=== PATIENT | male | born 1935 | race African-American/Black ===

== ENCOUNTER 2018-05-22 14:01 | Inpatient (IN) | payer MEDICARE, BC, MEDICAID ==
[~2018-05-22] VITALS: Ht 167.6 cm; Wt 76.0 kg
[2018-05-22 14:30] VITALS: BP 135/79
--- NOTE | 2018-05-22 14:44 | Emergency Room Report ---
History of Present Illness General Chief Complaint: Altered Level of Consciousness Source: Patient, Family Member, EMS Present Illness HPI Patient is had fluctuating altered mentation today. He was able to speak with hospice care worker earlier but now is somewhat confused. He missed dialysis today. He's also been refusing to eat and take his medications recently EMS got blood sugar of 104. Her graft the patient has a history of spinal stenosis. Is complaining about lower back pain. He will not rate the pain. The patient is scheduled to go into hospice tomorrow. When he had this same episode in April he was admitted for sepsis. Was felt to be due to his line at that time. Status post stroke right side In field he had HR 161 - a fib RVR. Apparently refusing dialysis at this time. Allergies: Coded Allergies: No Known Allergies (Unverified , 05/22/18) Patient History Limited by: medical condition Past Medical History: see triage record, old chart reviewed Past Surgical History: other - Fistula Social History: Denies: smoking Social History Narrative DNR Snf -no dialysis Reviewed Nursing Documentation: PMH: Agreed; PSxH: Agreed Review of Systems All Other Systems: limited Physical Exam Vital Signs Date Time Temp Pulse Resp B/P (MAP) Pulse Ox O2 Delivery O2 Flow Rate FiO2 05/22/18 13:52 98.2 112 18 115/68 98 Room Air Sp02 EP Interpretation: reviewed, normal General Appearance: alert, thin, Chronically Ill Head: normocephalic Eyes: bilateral eye normal inspection, bilateral eye PERRL ENT: moist mucus membranes Neck: supple Respiratory: chest non-tender, lungs clear, normal breath sounds Cardiovascular #1: regular rate, rhythm Cardiovascular #2: 2+ radial (R) Gastrointestinal: normal inspection, normal bowel sounds, non tender, no mass, non-distended Genitourinary: no CVA tenderness Musculoskeletal: back normal, normal range of motion Neurologic: alert, oriented x3, sensory intact, motor weakness - Generalized Psychiatric: depressed affect Skin: normal inspection, warm/dry Medical Decision Making Diagnostic Impression: Primary Impression: Altered level of consciousness Additional Impressions: Paroxysmal A-fib Sepsis Qualified Codes: A41.9 - Sepsis, unspecified organism Elevated troponin ESRD (end stage renal disease) ER Course Patient presents with altered level of consciousness of missing dialysis. Differential includes sepsis, acute myocardial infarction, electrolyte imbalance amongst others. Patient will be evaluated with EKG, chest x-ray and labs. He sometimes produces urine. HR better in ED. EKG with ST. Called for + troponin. Aspirin given. Leukocytosis and end-stage renal disease. Elevated BNP. Discussed level of care with daughter. She states she is refusing dialysis. He is due to go into hospice tomorrow. She discussed the patient with a hospice workers. They requested the patient be admitted for observation and stabilization to the hospital. Based on the leukocytosis the patient is presumed to have occult infection. Chest x-ray is negative. Presumptive urinary tract infection even though the patient has not given us urine. Antibiotics are begun. Patient is somewhat improved. Daughter requested the patient be admitted and stabilized prior to discharge to hospice. Patient admitted to Dr. Ashley. Laboratory Tests Test 05/22/18 15:10 White Blood Count 21.6 K/UL (4.8-10.8) H Red Blood Count 3.21 M/UL (4.70-6.10) L Hemoglobin 9.9 G/DL (14.2-18.0) L Hematocrit 31.4 % (42.0-52.0) L Mean Corpuscular Volume 98 FL (80-99) Mean Corpuscular Hemoglobin 30.8 PG (27.0-31.0) Mean Corpuscular Hemoglobin Concent 31.5 G/DL (32.0-36.0) L Red Cell Distribution Width 14.6 % (11.6-14.8) Platelet Count 290 K/UL (150-450) Mean Platelet Volume 5.9 FL (6.5-10.1) L Neutrophils (%) (Auto) % (45.0-75.0) Lymphocytes (%) (Auto) % (20.0-45.0) Monocytes (%) (Auto) % (1.0-10.0) Eosinophils (%) (Auto) % (0.0-3.0) Basophils (%) (Auto) % (0.0-2.0) Differential Total Cells Counted 100 Neutrophils % (Manual) 88 % (45-75) H Lymphocytes % (Manual) 5 % (20-45) L Monocytes % (Manual) 6 % (1-10) Eosinophils % (Manual) 0 % (0-3) Basophils % (Manual) 0 % (0-2) Band Neutrophils 1 % (0-8) Platelet Estimate Adequate Platelet Morphology Normal Hypochromasia 1+ Anisocytosis 1+ Prothrombin Time 11.6 SEC (9.30-11.50) H Prothrombin Time INR 1.1 (0.9-1.1) PTT 33 SEC (23-33) Sodium Level 141 MMOL/L (136-145) Potassium Level 4.3 MMOL/L (3.5-5.1) Chloride Level 102 MMOL/L (98-107) Carbon Dioxide Level 26 MMOL/L (21-32) Anion Gap 13 mmol/L (5-15) Blood Urea Nitrogen 47 mg/dL (7-18) H Creatinine 8.2 MG/DL (0.55-1.30) H Estimate Glomerular Filtration Rate mL/min (>60) Glucose Level 86 MG/DL (74-106) Lactic Acid Level 1.60 mmol/L (0.4-2.0) Calcium Level 8.9 MG/DL (8.5-10.1) Total Bilirubin 0.6 MG/DL (0.2-1.0) Aspartate Amino Transferase (AST) 20 U/L (15-37) Alanine Aminotransferase (ALT) 11 U/L (12-78) L Alkaline Phosphatase 106 U/L (46-116) Total Creatine Kinase 288 U/L (26-308) Troponin I 0.315 ng/mL (0.000-0.056) Pro-B-Type Natriuretic Peptide > 28056 pg/mL (0-125) H Total Protein 7.0 G/DL (6.4-8.2) Albumin 2.1 G/DL (3.4-5.0) L Globulin 4.9 g/dL Albumin/Globulin Ratio 0.4 (1.0-2.7) L EKG Diagnostic Results Rate: tachycardiac Rhythm: other ST Segments: no acute changes Rhythm Strip Diag. Results EP Interpretation: yes Rhythm: no PVC's, no ectopy, other - ST Chest X-Ray Diagnostic Results Chest X-Ray Diagnostic Results : Chest X-Ray Ordered: Yes # of Views/Limited/Complete: 1 View Indication: Other EP Interpretation: Yes Interpretation: no consolidation, no pneumothorax Impression: No acute disease Electronically Signed by: Electronically signed by Maicol Guardado MD Last Vital Signs Date Time Temp Pulse Resp B/P (MAP) Pulse Ox O2 Delivery O2 Flow Rate FiO2 05/22/18 13:52 98.2 112 18 115/68 98 Room Air Status: improved Disposition: ADMITTED INPATIENT Condition: Serious Maicol Guardado MD May 22, 2018 14:44
[2018-05-22 15:36] LABS: INR 1.1 (0.9-1.1)
[2018-05-22 15:37] LABS: HEMATOCRIT 31.4 % (42.0-52.0); HEMOGLOBIN 9.9 G/DL (14.2-18.0); MEAN CORPUSCULAR VOLUME 98 FL (80-99); PLATELET COUNT 290 K/UL (150-450); RED BLOOD COUNT 3.21 M/UL (4.70-6.10); RED CELL DISTRIBUTION WIDTH 14.6 % (11.6-14.8); WHITE BLOOD COUNT 21.6 K/UL (4.8-10.8)
[2018-05-22 15:38] LABS: ANION GAP 13 mmol/L (5-15); BLOOD UREA NITROGEN 47 mg/dL (7-18); CALCIUM 8.9 MG/DL (8.5-10.1); CARBON DIOXIDE 26 MMOL/L (21-32); CHLORIDE 102 MMOL/L (98-107); CREATININE 8.2 MG/DL (0.55-1.30); POTASSIUM 4.3 MMOL/L (3.5-5.1); SODIUM 141 MMOL/L (136-145)
[2018-05-22 15:48] LABS: ALANINE AMINOTRANSFERASE 11 U/L (12-78); ALBUMIN 2.1 G/DL (3.4-5.0); ALBUMIN/GLOBULIN RATIO 0.4 (1.0-2.7); ALKALINE PHOSPHATASE 106 U/L (46-116); ASPARTATE AMINO TRANSFERASE 20 U/L (15-37); BILIRUBIN,TOTAL 0.6 MG/DL (0.2-1.0); CREATINE KINASE 288 U/L (26-308)
--- NOTE | 2018-05-22 15:48 | Diagnostic Imaging Report ---
Indication: Dyspnea Comparison: None A single view chest radiograph was obtained. Findings: Cardiomediastinal appearance is within normal limits for age. The lungs are clear. Pulmonary vascularity is appropriate. The diaphragmatic contour is smooth and costophrenic angles are sharp. No pleural effusions are identified. The bones are unremarkable. Impression: No acute findings
[2018-05-22] MEDS ORDERED: Cefepime HCl 1 GM in D5W 55 ML IVPB ONE (16:00)
[2018-05-22 18:16] VITALS: BP 118/56
[2018-05-22 20:00] VITALS: BP 118/63
[2018-05-22] MEDS ORDERED: DiphenhydrAMINE 50mg/ml Inj IVP PRN (22:45)
[2018-05-22] MEDS ORDERED: Morphine Sulfate 2mg/ml Inj(IV/IM USE ONLY) IVP PRN (22:45)
[2018-05-22] MEDS ORDERED: HYDROcodone/Acetamin 10/325 tab ORAL PRN (22:45)
[2018-05-22] MEDS ORDERED: Norco 5mg/325mg tab ORAL PRN (22:45)
[2018-05-22] MEDS ORDERED: FINASTERIDE5 MG ORAL (23:24)
[2018-05-22] MEDS ORDERED: FAMOTIDINE20 MG ORAL (23:24)
[2018-05-22] MEDS ORDERED: NEPHROVITE1 TAB ORAL (23:24)
[2018-05-22] MEDS ORDERED: DONEPEZIL HCL10 MG ORAL (23:24)
[2018-05-22] MEDS ORDERED: ULORIC40 MG ORAL (23:24)
[2018-05-22] MEDS ORDERED: RENVELA0.8 GM ORAL (23:24)
[2018-05-22] MEDS ORDERED: DOCUSATE SODIU100 MG ORAL (23:24)
[2018-05-22] MEDS ORDERED: GABAPENTIN100 MG ORAL (23:24)
[2018-05-22] MEDS ORDERED: MELATONIN 3 MG1 EAC1 PO (23:24)
[2018-05-22] MEDS ORDERED: MIRALAX17 G2 ORAL (23:40)
[2018-05-22] MEDS ORDERED: KEPPRA750 MG ORAL (23:40)
[2018-05-22] MEDS ORDERED: KEPPRA500 M4 ORAL (23:40)
[2018-05-22] MEDS ORDERED: ACETAMINOPHEN120 MG ORAL (23:40)
[2018-05-22] MEDS ORDERED: DULCOLAX10 MG RC (23:40)
[2018-05-22] MEDS ORDERED: TRILEPTAL150 M3 PO (23:40)
[2018-05-22] MEDS ORDERED: Miralax 17gm pkt ORAL PRN (23:45)
[2018-05-23] VITALS: BP 124/67
[2018-05-23] MEDS: Nephrovite tab (Rena-Vite) ORAL SCH ×2 (01:15→21:48)
[2018-05-23] MEDS: OXcarbazepine 150mg tab ORAL SCH ×4 (01:16→21:55)
[2018-05-23] MEDS: Zosyn 3.375gm in NS 110ml IVPB SCH ×2 (01:22→12:00)
[2018-05-23 04:00] VITALS: BP 126/74
[2018-05-23 08:00] VITALS: BP 122/77
[2018-05-23] MEDS: Calcitriol 0.25mcg Cap ORAL SCH (09:00)
[2018-05-23] MEDS: Vitamin B Complex Tab ORAL SCH (09:00)
[2018-05-23] MEDS: Docusate 100mg cap ORAL SCH ×2 (09:00→17:28)
[2018-05-23] MEDS: Heparin 5000 units/ml inj SUBQ SCH ×2 (10:29→21:51)
--- NOTE | 2018-05-23 10:29 | History & Physical ---
History and Physical History & Physicial DICT # [id number] Trae Ashley MD May 23, 2018 10:29
[2018-05-23] MEDS: Renvela 800mg Pkt ORAL SCH ×3 (10:30→17:29)
[2018-05-23 12:00] VITALS: BP 119/75
--- NOTE | 2018-05-23 14:25 | Consultation ---
History of Present Illness General Date patient seen: May 23, 2018 Chief Complaint: Altered Level of Consciousness Present Illness HPI 83 y/o M with hx of ESRD on HD via AVF, spinal stenosis,.CVA presented to ED on 05/22 with AMS, poor PO intake, lower back pain. In the filed pt with Afib with RVR to 161. He missed HD sesion day of admission. Patient is schedule to go to hospice tomorrow. He was found to have leukocytosis in the 20s and ID called to assist on management. Per daughter, agrees with antibiotic treatment if needed. Denies cough, KURTZ, n/v/d, diarrhea, abd pain Allergies: Coded Allergies: No Known Allergies (Unverified , 05/22/18) Medication History Scheduled Docusate Sodium* (Docusate Sodium*), 100 MG ORAL TWICE A DAY, (Reported) Donepezil Hcl* (Donepezil Hcl*), 15 MG ORAL DAILY, (Reported) Famotidine (Famotidine), 20 MG ORAL BEDTIME, (Reported) Febuxostat (Uloric), 40 MG ORAL DAILY, (Reported) Finasteride (Finasteride), 5 MG ORAL BEDTIME, (Reported) Gabapentin* (Gabapentin*), 100 MG ORAL BEDTIME, (Reported) Levetiracetam (Keppra), 750 MG ORAL DAILY, (Reported) Levetiracetam (Keppra), 500 MG ORAL 3XW, (Reported) Melatonin/Pyridoxine HCl (B6) (Melatonin 3 mg Tablet), 1 EACH PO BEDTIME, ( Reported) Oxcarbazepine (Trileptal), 150 MG PO EVERY 12 HOURS, (Reported) Polyethylene Glycol 3350* (Miralax*), 17 GM ORAL EVERY 8 HOURS, (Reported) Sevelamer Carbonate* (Renvela*), 800 MG ORAL THREE TIMES A DAY, (Reported) Vitamin B Cmplx/Vit C/Folic AC (Nephro-Deon Tablet), 1 TAB ORAL BEDTIME, ( Reported) Scheduled PRN Acetaminophen* (Tylenol*), 650 MG ORAL Q4H PRN for Mild Pain/Temp > 100.5, ( Reported) Miscellaneous Medications Bisacodyl (Dulcolax), 10 MG RC, (Reported) Patient History Healthcare decision maker Resuscitation status Do Not Resuscitate Advanced Directive on File Patient History Narrative Pmhx: as above Shx: Denies: smoking Fhx: non contributory Physical Exam Physical Exam Narrative General Appearance: alert, thin, Chronically Ill HEENT: normocephalic, bilateral eye normal inspection, bilateral eye PERRL ENT: moist mucus membranes Neck: supple Respiratory: chest non-tender, lungs clear, normal breath sounds Cardiovascular regular rate, rhythm Gastrointestinal: normal inspection, normal bowel sounds, non tender, no mass, non-distended Genitourinary: no CVA tenderness Musculoskeletal: back normal, normal range of motion Neurologic: alert, oriented x3, sensory intact, motor weakness - Generalized Psychiatric: depressed affect Skin: normal inspection, warm/dry Last 24 Hour Vital Signs Date Time Temp Pulse Resp B/P (MAP) Pulse Ox O2 Delivery O2 Flow Rate FiO2 05/23/18 12:00 98.0 76 18 119/75 (90) 95 05/23/18 09:00 Room Air 05/23/18 08:00 98.1 79 18 122/77 (92) 95 05/23/18 04:00 98.1 81 17 126/74 (91) 95 05/23/18 01:06 Room Air 05/23/18 00:00 98.2 71 17 124/67 (86) 97 05/22/18 20:00 98.8 87 17 118/56 98 Room Air 05/22/18 20:00 98.7 83 17 118/63 (81) 96 05/22/18 18:16 98.8 87 17 118/56 98 Room Air 05/22/18 14:30 99.1 100 15 135/79 98 Room Air Intake and Output 05/22/18 05/23/18 19:00 07:00 Intake Total 110.0 ml Balance 110.0 ml Intake IV Total 110.0 ml # Voids 1 Laboratory Tests Test 05/22/18 15:10 White Blood Count 21.6 K/UL (4.8-10.8) H Red Blood Count 3.21 M/UL (4.70-6.10) L Hemoglobin 9.9 G/DL (14.2-18.0) L Hematocrit 31.4 % (42.0-52.0) L Mean Corpuscular Volume 98 FL (80-99) Mean Corpuscular Hemoglobin 30.8 PG (27.0-31.0) Mean Corpuscular Hemoglobin Concent 31.5 G/DL (32.0-36.0) L Red Cell Distribution Width 14.6 % (11.6-14.8) Platelet Count 290 K/UL (150-450) Mean Platelet Volume 5.9 FL (6.5-10.1) L Neutrophils (%) (Auto) % (45.0-75.0) Lymphocytes (%) (Auto) % (20.0-45.0) Monocytes (%) (Auto) % (1.0-10.0) Eosinophils (%) (Auto) % (0.0-3.0) Basophils (%) (Auto) % (0.0-2.0) Differential Total Cells Counted 100 Neutrophils % (Manual) 88 % (45-75) H Lymphocytes % (Manual) 5 % (20-45) L Monocytes % (Manual) 6 % (1-10) Eosinophils % (Manual) 0 % (0-3) Basophils % (Manual) 0 % (0-2) Band Neutrophils 1 % (0-8) Platelet Estimate Adequate Platelet Morphology Normal Hypochromasia 1+ Anisocytosis 1+ Prothrombin Time 11.6 SEC (9.30-11.50) H Prothromb Time International Ratio 1.1 (0.9-1.1) Activated Partial Thromboplast Time 33 SEC (23-33) Sodium Level 141 MMOL/L (136-145) Potassium Level 4.3 MMOL/L (3.5-5.1) Chloride Level 102 MMOL/L (98-107) Carbon Dioxide Level 26 MMOL/L (21-32) Anion Gap 13 mmol/L (5-15) Blood Urea Nitrogen 47 mg/dL (7-18) H Creatinine 8.2 MG/DL (0.55-1.30) H Estimat Glomerular Filtration Rate mL/min (>60) Glucose Level 86 MG/DL (74-106) Lactic Acid Level 1.60 mmol/L (0.4-2.0) Calcium Level 8.9 MG/DL (8.5-10.1) Total Bilirubin 0.6 MG/DL (0.2-1.0) Aspartate Amino Transf (AST/SGOT) 20 U/L (15-37) Alanine Aminotransferase (ALT/SGPT) 11 U/L (12-78) L Alkaline Phosphatase 106 U/L (46-116) Total Creatine Kinase 288 U/L (26-308) Troponin I 0.315 ng/mL (0.000-0.056) Pro-B-Type Natriuretic Peptide > 18622 pg/mL (0-125) H Total Protein 7.0 G/DL (6.4-8.2) Albumin 2.1 G/DL (3.4-5.0) L Globulin 4.9 g/dL Albumin/Globulin Ratio 0.4 (1.0-2.7) L Microbiology Date/Time Source Procedure Growth Status 05/22/18 21:00 Wound Gram Stain - Final Resulted 05/22/18 21:00 Wound Wound Culture Pending Resulted Height (Feet): 5 Height (Inches): 6.00 Weight (Pounds): 163 Medications Current Medications Medications (Trade) Dose Ordered Sig/Kiera Route PRN Reason Start Time Stop Time Status Last Admin Dose Admin Acetaminophen (Tylenol) 650 mg Q4H PRN ORAL Mild Pain/Temp > 100.5 05/23/18 00:30 06/22/18 00:29 Acetaminophen/ Hydrocodone Bitart ([place] 10/325) 1 tab Q4H PRN ORAL Moderate Pain (Pain Scale 4-6) 05/22/18 22:45 05/29/18 22:44 Acetaminophen/ Hydrocodone Bitart ([place] 5/325) 1 tab Q4H PRN ORAL Mild Pain (Pain Scale 1-3) 05/22/18 22:45 05/29/18 22:44 Bisacodyl (Dulcolax) 10 mg DAILYPRN PRN RECTAL Constipation 05/23/18 00:30 06/22/18 00:29 Calcitriol (Rocatrol) 0.25 mcg DAILY ORAL 05/23/18 09:00 06/22/18 08:59 Diphenhydramine HCl (Benadryl) 25 mg Q6H PRN IVP Itching 05/22/18 22:45 06/21/18 22:44 Docusate Sodium (Colace) 100 mg TWICE A DAY ORAL 05/23/18 09:00 06/22/18 08:59 Donepezil HCl (Aricept) 15 mg BEDTIME ORAL 05/23/18 21:00 06/22/18 20:59 Famotidine (Pepcid) 20 mg BEDTIME ORAL 05/23/18 00:15 06/22/18 00:14 05/23/18 01:15 Finasteride (Proscar) 5 mg BEDTIME ORAL 05/23/18 00:15 06/22/18 00:14 05/23/18 01:15 Gabapentin (Neurontin) 100 mg BEDTIME ORAL 05/23/18 00:15 06/22/18 00:14 05/23/18 01:15 Heparin Sodium (Porcine) (Heparin 5000 units/ml) 5,000 units EVERY 12 HOURS SUBQ 05/23/18 09:00 06/22/18 08:59 05/23/18 10:29 Levetiracetam (Keppra) 500 mg 3XW ORAL 05/24/18 09:00 06/23/18 08:59 Levetiracetam (Keppra) 750 mg DAILY ORAL 05/23/18 09:00 06/22/18 08:59 05/23/18 10:30 Morphine Sulfate (Morphine Sulfate) 1 mg Q4H PRN IVP For Pain 05/22/18 22:45 05/29/18 22:44 Non-Formulary Medication (Non-Formulary Med) 1 ea DAILY ORAL 05/23/18 09:00 06/22/18 08:59 UNV Ondansetron HCl (Zofran) 4 mg Q6H PRN IVP Nausea & Vomiting 05/22/18 22:45 06/21/18 22:44 Oxcarbazepine (Trileptal) 75 mg BEDTIME ORAL 05/23/18 21:00 06/22/18 20:59 Oxcarbazepine (Trileptal) 150 mg EVERY 12 HOURS ORAL 05/23/18 00:15 06/22/18 00:14 05/23/18 01:16 Piperacillin Sod/ Tazobactam Sod 3.375 gm/Sodium Chloride 110 ml @ 27.5 mls/hr Q12H IVPB 05/23/18 00:00 05/30/18 00:00 05/23/18 12:00 Polyethylene Glycol (Miralax) 17 gm Q8H PRN ORAL Constipation 05/22/18 23:45 06/21/18 23:44 Sevelamer Carbonate (Renvela) 800 mg THREE TIMES A DAY ORAL 05/23/18 09:00 06/22/18 08:59 05/23/18 12:55 Vitamin B Complex (Vitamin B Complex) 1 tab DAILY ORAL 05/23/18 09:00 06/22/18 08:59 Vitamin B Complex/ Vit C/Folic Acid (Nephrovite) 1 tab BEDTIME ORAL 05/23/18 00:15 06/22/18 00:14 05/23/18 01:15 Assessment/Plan Assessment/Plan Abx: Zosyn 05/23- Cefepime x1 05/22 Assessment: Acute encephalopathy- ? uremic encephalopathy ( missing HD session) Afebrile Leukocytosis- no obvious infectious source at present- ?reactive- patient not septic, no localizing symptoms -r.o bacteremia -u/a not able to be obtain -CXR: no acute disease ESRD on HD via AVF spinal stenosis CVA Plan: -On empiric ZOsyn #1 -patient is going to hospice, currently he is not septic and no obvious infections process at present. Given hospice and goals of care, recommend discharging him off antibiotics as these will no provide comfort and may produce complications. -f/u cx -Monitor CBC/CMP, temperatures -aspiration precautions -Hospice/comfort care Thank you for this consultation. Will continue to follow along with you. Discussed with RN and Kim Hernandez M.D. May 23, 2018 14:25
--- NOTE | 2018-05-23 15:30 | Consultation ---
Consult Note Consult Note asked to eval for renal failure and possible needed dialysis management ER NOTE: Patient is had fluctuating altered mentation . He was able to speak with hospice care worker earlier but now is somewhat confused. He missed dialysis today. He's also been refusing to eat and take his medications recently EMS got blood sugar of 104. Her graft the patient has a history of spinal stenosis. Is complaining about lower back pain. He will not rate the pain. The patient is scheduled to go into hospice tomorrow. When he had this same episode in April he was admitted for sepsis. Was felt to be due to his line at that time. Status post stroke right side In field he had HR 161 - a fib RVR. Apparently refusing dialysis at this time. No Known Allergies (Unverified , 05/22/18) Limited by: medical condition Past Medical History: see triage record, old chart reviewed Past Surgical History: other - Fistula Social History: Denies: smoking Social History Narrative DNR Snf -no dialysis Reviewed Nursing Documentation: PMH: Agreed; PSxH: Agreed patient examined- data reviewed Assessment/Plan Acute encephalopathy- ? uremic encephalopathy ( missing HD session) ESRD Spinal Stenosis Leukocytosis , no fever CVA plan: will discuss with PMD and clarify if : HD and or Hospice route is to be taken ! Travis Peña MD May 23, 2018 15:30
--- NOTE | 2018-05-23 15:31 | Cardiology Report ---
APPROVED REPORT EKG Measurement Heart [id number] Sinus tachycardia Abnormal ECG
[2018-05-23 16:00] VITALS: BP 143/79
[2018-05-23 20:00] VITALS: BP 133/66
[2018-05-23] MEDS ORDERED: Miralax 17gm pkt ORAL PRN (21:00)
[2018-05-23] MEDS: Donepezil 5mg Tab ORAL SCH (21:48)
[2018-05-23] MEDS: Zosyn 2.25 gm in D5W 55ml IV SCH (21:56)
--- NOTE | 2018-05-23 23:30 | History and Physical Report ---
DATE OF ADMISSION: 05/22/2018 CHIEF COMPLAINT: Altered mental status. HISTORY OF PRESENT ILLNESS: The patient is a very unfortunate 83-year-old male with a history of end-stage renal disease, on dialysis, hypertension, hyperlipidemia, renal cell carcinoma, status post cryoablation, seizure disorder, and dementia, admitted through the emergency department with altered mental status. The patient was scheduled to start hospice services today and discontinue dialysis. However, when he got to the dialysis center, he was altered, so was sent into the ER. The ER physician had a discussion with the patient's daughter and they elected to admit the patient to the hospital. The daughter also consulted with the hospice company prior to doing this. The patient has been afebrile with stable vital signs since he has been here. He had an episode of atrial fibrillation with RVR in the field, but he has been rate controlled here, saturating well on room air. His workup was significant for a leukocytosis, elevated troponin, and BNP. Chest x-ray done in the ER showed no acute findings. The patient himself is demented and cannot provide any history. PAST MEDICAL HISTORY: 1. End-stage renal disease, on dialysis. 2. Hypertension. 3. Hyperlipidemia. 4. Renal cell carcinoma, status post cryoablation. 5. Seizure disorder. 6. Gout. 7. Dementia. ALLERGIES: No known drug allergies. MEDICATIONS: Prior to admission, medications reviewed. Current medications reviewed. SOCIAL HISTORY: intermediate resident. No known tobacco, alcohol, or illicit drug use. FAMILY HISTORY: Noncontributory. REVIEW OF SYSTEMS: Unobtainable. PHYSICAL EXAMINATION: VITAL SIGNS: Temperature 98.1, pulse 81, blood pressure 126/74, respiratory rate 17, and saturating 95% on room air. GENERAL: He is an elderly demented male, in no acute distress HEENT: Normocephalic and atraumatic. Oropharynx clear. NECK: Supple without lymphadenopathy. CHEST: Clear with bibasilar rales. HEART: Regular rate and rhythm. ABDOMEN: Soft, nontender, and nondistended. EXTREMITIES: No cyanosis, clubbing or edema. LABORATORY AND DIAGNOSTIC DATA: Sodium , chloride 102, bicarbonate 26, BUN creatinine 8.2, glucose 86, lactic acid , calcium 8.9. Total bilirubin 0.6. AST 20, ALT 11, and alkaline phosphatase 106. CK 288, troponin 0.315. BNP 35,000. Total protein 7, albumin 2.1, globulin 4.9. INR 1.9. Chest x-ray, no acute findings. ASSESSMENT: The patient is an 83-year-old male, history of end-stage renal disease, on dialysis, hypertension, hyperlipidemia, renal cell carcinoma, status post cryoablation, seizure disorder, dementia, presenting with altered mental status likely secondary to toxic encephalopathy from an underlying infectious process, given leukocytosis, has no evidence of pneumonia. Urine was not obtainable. The patient is being treated. The patient received cefepime in the ER and we started Zosyn upon arrival to the floor. I have discussed the case with the patient's aerospace quality engineer, and his daughter, given plan to transition to home hospice. We will continue antibiotics. I will consult ID to assist me in transitioning to oral antibiotic regimen with the plan of discharging the patient home to home hospice. The patient is DNR/DNI with no plan for escalation of care and we will plan for dialysis while in the hospital. PROBLEM LIST: 1. Sepsis. 2. Leukocytosis. 3. Altered mental status secondary to above. 4. End-stage renal disease, on dialysis, with plan to discontinue dialysis. 5. Renal cell carcinoma, status post cryoablation. 6. Seizure disorder. 7. Vascular dementia. 8. Hypertension. 9. Hyperlipidemia. 10. Gout. TREATMENT PLAN: 1. Continue IV antibiotics for now. We will consult ID to assist in transition to an oral regimen. 2. No plan for further dialysis. 3. Discontinue daily laboratories. 4. Continue home medications. 5. Hospice has already been set up by the patient's daughter. 6. Case management consult to assist in transitioning to home hospice. 7. Once plan is in place, we will discharge the patient home with home hospice with no plan for further dialysis. 8. Renal evaluation has been requested by Dr. Peña as well. 9. Case discussed with , the patient's aerospace quality engineer and Dr. Pappas , the patient's PMD. Trae Ashley M.D. DR: SHEKHAR JOB#: [id number] CC:
[2018-05-24] VITALS: BP 124/67
[2018-05-24 04:00] VITALS: BP 116/67
[2018-05-24] MEDS: Zosyn 2.25 gm in D5W 55ml IV SCH ×3 (05:18→21:03)
[2018-05-24 07:08] LABS: HEMATOCRIT 27.8 % (42.0-52.0); MEAN CORPUSCULAR VOLUME 97 FL (80-99); PLATELET COUNT 309 K/UL (150-450); RED BLOOD COUNT 2.85 M/UL (4.70-6.10); RED CELL DISTRIBUTION WIDTH 14.7 % (11.6-14.8)
[2018-05-24 07:40] LABS: AMMONIA 18 umol/L (11-32)
[2018-05-24 07:42] LABS: ALANINE AMINOTRANSFERASE 11 U/L (12-78); ALBUMIN 1.7 G/DL (3.4-5.0); ALBUMIN/GLOBULIN RATIO 0.4 (1.0-2.7); ALKALINE PHOSPHATASE 92 U/L (46-116); ANION GAP 11 mmol/L (5-15); ASPARTATE AMINO TRANSFERASE 25 U/L (15-37); BILIRUBIN,TOTAL 0.5 MG/DL (0.2-1.0); BLOOD UREA NITROGEN 63 mg/dL (7-18); CALCIUM 8.2 MG/DL (8.5-10.1); CARBON DIOXIDE 27 MMOL/L (21-32); CHLORIDE 103 MMOL/L (98-107); CHOLESTEROL 118 MG/DL (< 200); CREATININE 9.3 MG/DL (0.55-1.30); HDL CHOLESTEROL 26 MG/DL (40-60); PHOSPHORUS 3.3 MG/DL (2.5-4.9); POTASSIUM 4.3 MMOL/L (3.5-5.1); SODIUM 141 MMOL/L (136-145); TRIGLYCERIDES 102 MG/DL (30-150)
[2018-05-24 08:00] VITALS: BP 140/72
[2018-05-24 08:28] LABS: % IRON SATURATION 45 % (15-50); IRON 17 ug/dL (50-175); TOTAL IRON BINDING CAPACITY 38 ug/dL (250-450)
[2018-05-24] MEDS: Calcitriol 0.25mcg Cap ORAL SCH (08:42)
[2018-05-24] MEDS: OXcarbazepine 150mg tab ORAL SCH ×3 (08:42→20:56)
[2018-05-24] MEDS: Renvela 800mg Pkt ORAL SCH ×3 (08:42→18:18)
[2018-05-24] MEDS: Docusate 100mg cap ORAL SCH ×2 (08:44→18:00)
[2018-05-24] MEDS: Heparin 5000 units/ml inj SUBQ SCH ×2 (08:44→20:57)
[2018-05-24] MEDS: Vitamin B Complex Tab ORAL SCH (08:44)
[2018-05-24 09:03] LABS: FERRITIN 1462 NG/ML (8-388)
[2018-05-24 12:00] VITALS: BP 139/73
--- NOTE | 2018-05-24 15:11 | Nephrology Progress Note ---
Assessment/Plan Problem List: (1) Sepsis (2) ESRD (end stage renal disease) (3) Altered level of consciousness Assessment Acute encephalopathy- ? uremic encephalopathy ( missing HD session) ESRD Spinal Stenosis Leukocytosis , no fever CVA Plan HD in am- Per ID Subjective ROS Limited/Unobtainable: No Constitutional: Reports: malaise, weakness Objective Objective Last 24 Hour Vital Signs Date Time Temp Pulse Resp B/P (MAP) Pulse Ox O2 Delivery O2 Flow Rate FiO2 05/24/18 12:00 97.0 88 18 139/73 (95) 98 05/24/18 09:00 Room Air 05/24/18 08:00 98.9 87 18 140/72 (94) 98 05/24/18 04:00 98.2 85 16 116/67 (83) 98 05/24/18 00:00 98.2 95 16 124/67 (86) 100 05/23/18 21:00 Room Air 05/23/18 20:00 98.6 91 17 133/66 (88) 98 05/23/18 16:00 98.4 92 18 143/79 (100) 100 Intake and Output 05/23/18 05/24/18 19:00 07:00 Intake Total 970.0 ml 100 ml Balance 970.0 ml 100 ml Intake Oral 860 ml 100 ml IV Total 110.0 ml # Voids 8 # Bowel Movements 1 Laboratory Tests 05/23/18 16:30: C-Reactive Protein, Quantitative 25.6H 05/24/18 06:35: White Blood Count 23.0*H, Red Blood Count 2.85L, Hemoglobin 9.0L, Hematocrit 27.8L, Mean Corpuscular Volume 97, Mean Corpuscular Hemoglobin 31.4H, Mean Corpuscular Hemoglobin Concent 32.3, Red Cell Distribution Width 14.7, Platelet Count 309, Mean Platelet Volume 5.4L, Neutrophils (%) (Auto) , Lymphocytes (%) ( Auto) , Monocytes (%) (Auto) , Eosinophils (%) (Auto) , Basophils (%) (Auto) , Differential Total Cells Counted 100, Neutrophils % (Manual) 91H, Lymphocytes % (Manual) 1L, Monocytes % (Manual) 4, Eosinophils % (Manual) 0, Basophils % ( Manual) 0, Band Neutrophils 4, Platelet Estimate Adequate, Platelet Morphology Normal, Anisocytosis 1+, Sodium Level 141, Potassium Level 4.3, Chloride Level 103, Carbon Dioxide Level 27, Anion Gap 11, Blood Urea Nitrogen 63H, Creatinine 9.3H, Estimat Glomerular Filtration Rate , Glucose Level 99, Uric Acid 2.3L, Calcium Level 8.2L, Phosphorus Level 3.3, Magnesium Level 2.0, Iron Level 17L, Total Iron Binding Capacity 38L, Percent Iron Saturation 45, Unsaturated Iron Binding 21L, Ferritin 1462H, Total Bilirubin 0.5, Aspartate Amino Transf (AST/ SGOT) 25, Alanine Aminotransferase (ALT/SGPT) 11L, Alkaline Phosphatase 92, Ammonia 18, Pro-B-Type Natriuretic Peptide > 49203V, Total Protein 6.1L, Albumin 1.7L, Globulin 4.4, Albumin/Globulin Ratio 0.4L, Triglycerides Level 102 , Cholesterol Level 118, LDL Cholesterol 56, HDL Cholesterol 26L, Cholesterol/ HDL Ratio 4.5H, Vitamin B12 Level > 2000H, Folate 23.1, Thyroid Stimulating Hormone (TSH) 0.598 Height (Feet): 5 Height (Inches): 6.00 Weight (Pounds): 168 General Appearance: no apparent distress Cardiovascular: normal rate Respiratory/Chest: decreased breath sounds Abdomen: soft Travis Peña MD May 24, 2018 15:11
[2018-05-24 16:00] VITALS: BP 109/58
--- NOTE | 2018-05-24 17:15 | Infectious Diseases Prog Note ---
Assessment/Plan Assessment/Plan Abx: Zosyn 05/23- Cefepime x1 05/22 Assessment: Acute encephalopathy- ? uremic encephalopathy ( missing HD session) Afebrile Leukocytosis, increased- no obvious infectious source at present- ?reactive- patient not septic, no localizing symptoms -r.o bacteremia -u/a not able to be obtain -CXR: no acute disease ESRD on HD via AVF spinal stenosis CVA Plan: -On empiric ZOsyn #2 -patient is going to hospice, currently he is not septic and no obvious infections process at present. Given hospice and goals of care, recommend discharging him off antibiotics as these will no provide comfort and may produce complications. -f/u cx -Monitor CBC/CMP, temperatures -aspiration precautions -Hospice/comfort care Thank you for this consultation. Will continue to follow along with you. Discussed with RN and Dr Ashley Subjective Allergies: Coded Allergies: No Known Allergies (Unverified , 05/22/18) Subjective afebrile wbc increased to 23 patient now agreeable for HD x1 while on hospital and then hospice Objective Vital Signs Last 24 Hour Vital Signs Date Time Temp Pulse Resp B/P (MAP) Pulse Ox O2 Delivery O2 Flow Rate FiO2 05/24/18 12:00 97.0 88 18 139/73 (95) 98 05/24/18 09:00 Room Air 05/24/18 08:00 98.9 87 18 140/72 (94) 98 05/24/18 04:00 98.2 85 16 116/67 (83) 98 05/24/18 00:00 98.2 95 16 124/67 (86) 100 05/23/18 21:00 Room Air 05/23/18 20:00 98.6 91 17 133/66 (88) 98 Height (Feet): 5 Height (Inches): 6.00 Weight (Pounds): 168 Objective General Appearance: alert, thin, Chronically Ill HEENT: normocephalic, bilateral eye normal inspection, bilateral eye PERRL ENT: moist mucus membranes Neck: supple Respiratory: chest non-tender, lungs clear, normal breath sounds Cardiovascular regular rate, rhythm Gastrointestinal: normal inspection, normal bowel sounds, non tender, no mass, non-distended Genitourinary: no CVA tenderness Musculoskeletal: back normal, normal range of motion Neurologic: alert, oriented x3, sensory intact, motor weakness - Generalized Psychiatric: depressed affect Skin: normal inspection, warm/dry Microbiology Date/Time Source Procedure Growth Status 05/22/18 21:00 Wound Gram Stain - Final Resulted 05/22/18 21:00 Wound Wound Culture Pending Resulted Laboratory Tests Test 05/24/18 06:35 White Blood Count 23.0 K/UL (4.8-10.8) *H Red Blood Count 2.85 M/UL (4.70-6.10) L Hemoglobin 9.0 G/DL (14.2-18.0) L Hematocrit 27.8 % (42.0-52.0) L Mean Corpuscular Volume 97 FL (80-99) Mean Corpuscular Hemoglobin 31.4 PG (27.0-31.0) H Mean Corpuscular Hemoglobin Concent 32.3 G/DL (32.0-36.0) Red Cell Distribution Width 14.7 % (11.6-14.8) Platelet Count 309 K/UL (150-450) Mean Platelet Volume 5.4 FL (6.5-10.1) L Neutrophils (%) (Auto) % (45.0-75.0) Lymphocytes (%) (Auto) % (20.0-45.0) Monocytes (%) (Auto) % (1.0-10.0) Eosinophils (%) (Auto) % (0.0-3.0) Basophils (%) (Auto) % (0.0-2.0) Differential Total Cells Counted 100 Neutrophils % (Manual) 91 % (45-75) H Lymphocytes % (Manual) 1 % (20-45) L Monocytes % (Manual) 4 % (1-10) Eosinophils % (Manual) 0 % (0-3) Basophils % (Manual) 0 % (0-2) Band Neutrophils 4 % (0-8) Platelet Estimate Adequate Platelet Morphology Normal Anisocytosis 1+ Sodium Level 141 MMOL/L (136-145) Potassium Level 4.3 MMOL/L (3.5-5.1) Chloride Level 103 MMOL/L (98-107) Carbon Dioxide Level 27 MMOL/L (21-32) Anion Gap 11 mmol/L (5-15) Blood Urea Nitrogen 63 mg/dL (7-18) H Creatinine 9.3 MG/DL (0.55-1.30) H Estimat Glomerular Filtration Rate mL/min (>60) Glucose Level 99 MG/DL (74-106) Uric Acid 2.3 MG/DL (2.6-7.2) L Calcium Level 8.2 MG/DL (8.5-10.1) L Phosphorus Level 3.3 MG/DL (2.5-4.9) Magnesium Level 2.0 MG/DL (1.8-2.4) Iron Level 17 ug/dL (50-175) L Total Iron Binding Capacity 38 ug/dL (250-450) L Percent Iron Saturation 45 % (15-50) Unsaturated Iron Binding 21 ug/dL (112-346) L Ferritin 1462 NG/ML (8-388) H Total Bilirubin 0.5 MG/DL (0.2-1.0) Aspartate Amino Transf (AST/SGOT) 25 U/L (15-37) Alanine Aminotransferase (ALT/SGPT) 11 U/L (12-78) L Alkaline Phosphatase 92 U/L (46-116) Ammonia 18 umol/L (11-32) Pro-B-Type Natriuretic Peptide > 45667 pg/mL (0-125) H Total Protein 6.1 G/DL (6.4-8.2) L Albumin 1.7 G/DL (3.4-5.0) L Globulin 4.4 g/dL Albumin/Globulin Ratio 0.4 (1.0-2.7) L Triglycerides Level 102 MG/DL (30-150) Cholesterol Level 118 MG/DL (< 200) LDL Cholesterol 56 mg/dL (<100) HDL Cholesterol 26 MG/DL (40-60) L Cholesterol/HDL Ratio 4.5 (3.3-4.4) H Vitamin B12 Level > 2000 PG/ML (193-986) H Folate 23.1 NG/ML (8.6-58.9) Thyroid Stimulating Hormone (TSH) 0.598 uiU/mL (0.358-3.740) Current Medications Medications (Trade) Dose Ordered Sig/Kiera Route PRN Reason Start Time Stop Time Status Last Admin Dose Admin Acetaminophen (Tylenol) 650 mg Q4H PRN ORAL Mild Pain/Temp > 100.5 05/23/18 00:30 06/22/18 00:29 Acetaminophen/ Hydrocodone Bitart ([place] 10/325) 1 tab Q4H PRN ORAL Moderate Pain (Pain Scale 4-6) 05/22/18 22:45 05/29/18 22:44 Acetaminophen/ Hydrocodone Bitart ([place] 5/325) 1 tab Q4H PRN ORAL Mild Pain (Pain Scale 1-3) 05/22/18 22:45 05/29/18 22:44 Bisacodyl (Dulcolax) 10 mg DAILYPRN PRN RECTAL Constipation 05/23/18 00:30 06/22/18 00:29 Calcitriol (Rocatrol) 0.25 mcg DAILY ORAL 05/23/18 09:00 06/22/18 08:59 05/24/18 08:42 Diphenhydramine HCl (Benadryl) 25 mg Q6H PRN IVP Itching 05/22/18 22:45 06/21/18 22:44 Docusate Sodium (Colace) 100 mg TWICE A DAY ORAL 05/23/18 09:00 06/22/18 08:59 05/24/18 08:44 Donepezil HCl (Aricept) 15 mg BEDTIME ORAL 05/23/18 21:00 06/22/18 20:59 05/23/18 21:48 Famotidine (Pepcid) 20 mg BEDTIME ORAL 05/23/18 00:15 06/22/18 00:14 05/23/18 21:50 Finasteride (Proscar) 5 mg BEDTIME ORAL 05/23/18 00:15 06/22/18 00:14 05/23/18 21:48 Gabapentin (Neurontin) 100 mg BEDTIME ORAL 05/23/18 00:15 06/22/18 00:14 05/23/18 21:48 Heparin Sodium (Porcine) (Heparin 5000 units/ml) 5,000 units EVERY 12 HOURS SUBQ 05/23/18 09:00 06/22/18 08:59 05/24/18 08:44 Levetiracetam (Keppra) 500 mg 3XW ORAL 05/24/18 09:00 06/23/18 08:59 05/24/18 08:42 Levetiracetam (Keppra) 750 mg DAILY ORAL 05/23/18 09:00 06/22/18 08:59 05/24/18 08:42 Morphine Sulfate (Morphine Sulfate) 1 mg Q4H PRN IVP For Pain 05/22/18 22:45 05/29/18 22:44 Ondansetron HCl (Zofran) 4 mg Q6H PRN IVP Nausea & Vomiting 05/22/18 22:45 06/21/18 22:44 Oxcarbazepine (Trileptal) 75 mg BEDTIME ORAL 05/23/18 21:00 06/22/18 20:59 05/23/18 21:55 Oxcarbazepine (Trileptal) 150 mg EVERY 12 HOURS ORAL 05/23/18 00:15 06/22/18 00:14 05/24/18 08:42 Piperacillin Sod/ Tazobactam Sod 2.25 gm/Dextrose 55 ml @ 110 mls/hr Q8HR IV 05/23/18 22:00 05/28/18 21:59 05/24/18 13:58 Polyethylene Glycol (Miralax) 17 gm Q8H PRN ORAL Constipation 05/22/18 23:45 06/21/18 23:44 Sevelamer Carbonate (Renvela) 800 mg THREE TIMES A DAY ORAL 05/23/18 09:00 06/22/18 08:59 05/24/18 08:42 Vitamin B Complex (Vitamin B Complex) 1 tab DAILY ORAL 05/23/18 09:00 06/22/18 08:59 Vitamin B Complex/ Vit C/Folic Acid (Nephrovite) 1 tab BEDTIME ORAL 05/23/18 00:15 06/22/18 00:14 05/23/18 21:48 Kim Wells M.D. May 24, 2018 17:15
[2018-05-24 20:00] VITALS: BP 129/70
[2018-05-24] MEDS: Nephrovite tab (Rena-Vite) ORAL SCH (20:54)
[2018-05-24] MEDS: Donepezil 5mg Tab ORAL SCH (20:55)
--- NOTE | 2018-05-24 21:00 | Pulmonology Progress Note ---
Assessment/Plan Problems: (1) Sepsis (2) Elevated troponin (3) Altered level of consciousness (4) Paroxysmal A-fib (5) ESRD (end stage renal disease) Assessment/Plan ASSESSMENT: The patient is an 83-year-old male, history of end-stage renal disease, on dialysis, hypertension, hyperlipidemia, renal cell carcinoma, status post cryoablation, seizure disorder, dementia, presenting with altered mental status likely secondary to toxic encephalopathy from an underlying infectious process, given leukocytosis, has no evidence of pneumonia. The patient is DNR/DNI with no plan for escalation of care and we will plan for dialysis while in the hospital. PROBLEM LIST: 1. Sepsis. 2. Leukocytosis. 3. Altered mental status secondary to above. 4. End-stage renal disease, on dialysis, with plan to discontinue dialysis. 5. Renal cell carcinoma, status post cryoablation. 6. Seizure disorder. 7. Vascular dementia. 8. Hypertension. 9. Hyperlipidemia. 10. Gout. TREATMENT PLAN: 1. Continue IV antibiotics for now. Agree with ID, will likely D/C home off Abx 2. No plan for further dialysis. 3. Discontinue daily laboratories. 4. Continue home medications. 5. Hospice has already been set up by the patient's daughter. 6. Case management consult to assist in transitioning to home hospice. 7. Once plan is in place, we will discharge the patient home with home hospice with no plan for further dialysis - LIKELY TOMMORROW 8. F/U renal recs, likely one last HD tommorrow in anticipation of D/C home off HD Subjective Allergies: Coded Allergies: No Known Allergies (Unverified , 05/22/18) Subjective AFVSS confused WCT inc Refusing meds Per d/w daughter HD tomm and then D/C to hospice with NO HD Objective Last 24 Hour Vital Signs Date Time Temp Pulse Resp B/P (MAP) Pulse Ox O2 Delivery O2 Flow Rate FiO2 05/24/18 16:00 98.1 79 19 109/58 (75) 98 05/24/18 12:00 97.0 88 18 139/73 (95) 98 05/24/18 09:00 Room Air 05/24/18 08:00 98.9 87 18 140/72 (94) 98 05/24/18 04:00 98.2 85 16 116/67 (83) 98 05/24/18 00:00 98.2 95 16 124/67 (86) 100 05/23/18 21:00 Room Air Intake and Output 05/23/18 05/24/18 19:00 07:00 Intake Total 970.0 ml 100 ml Balance 970.0 ml 100 ml Intake Oral 860 ml 100 ml IV Total 110.0 ml # Voids 8 # Bowel Movements 1 General Appearance: no acute distress, cachetic HEENT: normocephalic, atraumatic, anicteric, mucous membranes moist Respiratory/Chest: chest wall non-tender, lungs clear, normal breath sounds, no respiratory distress, no accessory muscle use Cardiovascular: normal peripheral pulses, normal rate, regular rhythm Abdomen: normal bowel sounds, soft, non tender, no organomegaly, non distended , no mass Extremities: no cyanosis, no clubbing, no edema Microbiology Date/Time Source Procedure Growth Status 05/22/18 21:00 Wound Gram Stain - Final Resulted 05/22/18 21:00 Wound Wound Culture Pending Resulted Laboratory Tests 05/24/18 06:35: White Blood Count 23.0*H, Red Blood Count 2.85L, Hemoglobin 9.0L, Hematocrit 27.8L, Mean Corpuscular Volume 97, Mean Corpuscular Hemoglobin 31.4H, Mean Corpuscular Hemoglobin Concent 32.3, Red Cell Distribution Width 14.7, Platelet Count 309, Mean Platelet Volume 5.4L, Neutrophils (%) (Auto) , Lymphocytes (%) ( Auto) , Monocytes (%) (Auto) , Eosinophils (%) (Auto) , Basophils (%) (Auto) , Differential Total Cells Counted 100, Neutrophils % (Manual) 91H, Lymphocytes % (Manual) 1L, Monocytes % (Manual) 4, Eosinophils % (Manual) 0, Basophils % ( Manual) 0, Band Neutrophils 4, Platelet Estimate Adequate, Platelet Morphology Normal, Anisocytosis 1+, Sodium Level 141, Potassium Level 4.3, Chloride Level 103, Carbon Dioxide Level 27, Anion Gap 11, Blood Urea Nitrogen 63H, Creatinine 9.3H, Estimat Glomerular Filtration Rate , Glucose Level 99, Uric Acid 2.3L, Calcium Level 8.2L, Phosphorus Level 3.3, Magnesium Level 2.0, Iron Level 17L, Total Iron Binding Capacity 38L, Percent Iron Saturation 45, Unsaturated Iron Binding 21L, Ferritin 1462H, Total Bilirubin 0.5, Aspartate Amino Transf (AST/ SGOT) 25, Alanine Aminotransferase (ALT/SGPT) 11L, Alkaline Phosphatase 92, Ammonia 18, Pro-B-Type Natriuretic Peptide > 78825V, Total Protein 6.1L, Albumin 1.7L, Globulin 4.4, Albumin/Globulin Ratio 0.4L, Triglycerides Level 102 , Cholesterol Level 118, LDL Cholesterol 56, HDL Cholesterol 26L, Cholesterol/ HDL Ratio 4.5H, Vitamin B12 Level > 2000H, Folate 23.1, Thyroid Stimulating Hormone (TSH) 0.598 Current Medications Medications (Trade) Dose Ordered Sig/Kiera Route PRN Reason Start Time Stop Time Status Last Admin Dose Admin Acetaminophen (Tylenol) 650 mg Q4H PRN ORAL Mild Pain/Temp > 100.5 05/23/18 00:30 06/22/18 00:29 Acetaminophen/ Hydrocodone Bitart ([place] 10/325) 1 tab Q4H PRN ORAL Moderate Pain (Pain Scale 4-6) 05/22/18 22:45 05/29/18 22:44 Acetaminophen/ Hydrocodone Bitart ([place] 5/325) 1 tab Q4H PRN ORAL Mild Pain (Pain Scale 1-3) 05/22/18 22:45 05/29/18 22:44 Bisacodyl (Dulcolax) 10 mg DAILYPRN PRN RECTAL Constipation 05/23/18 00:30 06/22/18 00:29 Calcitriol (Rocatrol) 0.25 mcg DAILY ORAL 05/23/18 09:00 06/22/18 08:59 05/24/18 08:42 Diphenhydramine HCl (Benadryl) 25 mg Q6H PRN IVP Itching 05/22/18 22:45 06/21/18 22:44 Docusate Sodium (Colace) 100 mg TWICE A DAY ORAL 05/23/18 09:00 06/22/18 08:59 05/24/18 08:44 Donepezil HCl (Aricept) 15 mg BEDTIME ORAL 05/23/18 21:00 06/22/18 20:59 05/23/18 21:48 Famotidine (Pepcid) 20 mg BEDTIME ORAL 05/23/18 00:15 06/22/18 00:14 05/23/18 21:50 Finasteride (Proscar) 5 mg BEDTIME ORAL 05/23/18 00:15 06/22/18 00:14 05/23/18 21:48 Gabapentin (Neurontin) 100 mg BEDTIME ORAL 05/23/18 00:15 06/22/18 00:14 05/23/18 21:48 Heparin Sodium (Porcine) (Heparin 5000 units/ml) 5,000 units EVERY 12 HOURS SUBQ 05/23/18 09:00 06/22/18 08:59 05/24/18 08:44 Levetiracetam (Keppra) 500 mg 3XW ORAL 05/24/18 09:00 06/23/18 08:59 05/24/18 08:42 Levetiracetam (Keppra) 750 mg DAILY ORAL 05/23/18 09:00 06/22/18 08:59 05/24/18 08:42 Morphine Sulfate (Morphine Sulfate) 1 mg Q4H PRN IVP For Pain 05/22/18 22:45 05/29/18 22:44 Ondansetron HCl (Zofran) 4 mg Q6H PRN IVP Nausea & Vomiting 05/22/18 22:45 06/21/18 22:44 Oxcarbazepine (Trileptal) 75 mg BEDTIME ORAL 05/23/18 21:00 06/22/18 20:59 05/23/18 21:55 Oxcarbazepine (Trileptal) 150 mg EVERY 12 HOURS ORAL 05/23/18 00:15 06/22/18 00:14 05/24/18 08:42 Piperacillin Sod/ Tazobactam Sod 2.25 gm/Dextrose 55 ml @ 110 mls/hr Q8HR IV 05/23/18 22:00 05/28/18 21:59 05/24/18 13:58 Polyethylene Glycol (Miralax) 17 gm Q8H PRN ORAL Constipation 05/22/18 23:45 06/21/18 23:44 Sevelamer Carbonate (Renvela) 800 mg THREE TIMES A DAY ORAL 05/23/18 09:00 06/22/18 08:59 05/24/18 18:18 Vitamin B Complex (Vitamin B Complex) 1 tab DAILY ORAL 05/23/18 09:00 06/22/18 08:59 Vitamin B Complex/ Vit C/Folic Acid (Nephrovite) 1 tab BEDTIME ORAL 05/23/18 00:15 06/22/18 00:14 05/23/18 21:48 Trae Ashley MD May 24, 2018 21:00
[2018-05-25] VITALS: BP 152/78
[2018-05-25 04:00] VITALS: BP 129/85
[2018-05-25] MEDS: Zosyn 2.25 gm in D5W 55ml IV SCH ×2 (05:37→13:19)
[2018-05-25 08:00] VITALS: BP 139/75
[2018-05-25] MEDS: Heparin 5000 units/ml inj SUBQ SCH (09:00)
[2018-05-25] MEDS: OXcarbazepine 150mg tab ORAL SCH (10:30)
[2018-05-25] MEDS: Renvela 800mg Pkt ORAL SCH ×3 (10:30→17:51)
[2018-05-25] MEDS: Vitamin B Complex Tab ORAL SCH (10:31)
[2018-05-25] MEDS: Docusate 100mg cap ORAL SCH ×2 (10:31→17:52)
[2018-05-25] MEDS: Calcitriol 0.25mcg Cap ORAL SCH (10:31)
[2018-05-25 12:00] VITALS: BP 125/69
--- NOTE | 2018-05-25 15:31 | Nephrology Progress Note ---
Assessment/Plan Problem List: (1) Sepsis (2) ESRD (end stage renal disease) (3) Altered level of consciousness Assessment Acute encephalopathy- ? uremic encephalopathy ( missing HD session) ESRD Spinal Stenosis Leukocytosis , no fever CVA Plan HD today Per ID ? Dc on hospice?? Subjective ROS Limited/Unobtainable: No Constitutional: Reports: weakness Objective Objective Last 24 Hour Vital Signs Date Time Temp Pulse Resp B/P (MAP) Pulse Ox O2 Delivery O2 Flow Rate FiO2 05/25/18 12:00 98.2 78 20 125/69 (87) 99 05/25/18 08:45 Room Air 05/25/18 08:00 97.1 81 20 139/75 (96) 97 05/25/18 04:00 97.4 100 18 129/85 (100) 98 05/25/18 00:00 97.1 57 18 152/78 (102) 97 05/24/18 21:00 Room Air 05/24/18 20:00 99.9 87 18 129/70 (89) 94 05/24/18 16:00 98.1 79 19 109/58 (75) 98 Intake and Output 05/24/18 05/25/18 19:00 07:00 Intake Total 295 ml 155 ml Balance 295 ml 155 ml Intake Oral 240 ml 100 ml IV Total 55 ml 55 ml # Voids 1 1 # Bowel Movements 1 Height (Feet): 5 Height (Inches): 6.00 Weight (Pounds): 167 General Appearance: no apparent distress Cardiovascular: normal rate Respiratory/Chest: decreased breath sounds Abdomen: soft Objective no change Travis Peña MD May 25, 2018 15:31
[2018-05-25 16:00] VITALS: BP 115/59
--- NOTE | 2018-05-25 17:08 | Infectious Diseases Prog Note ---
Assessment/Plan Assessment/Plan Abx: Zosyn 05/23- Cefepime x1 05/22 Assessment: Acute encephalopathy- ? uremic encephalopathy ( missing HD session) Afebrile Leukocytosis, increased- no obvious infectious source at present- ?reactive- patient not septic, no localizing symptoms -r.o bacteremia -Bcx NTD -u/a not able to be obtain -CXR: no acute disease Sacral decubitus ulcer stage II- not infected -wound cx S.a ureus, GPC ; colonizers ESRD on HD via AVF spinal stenosis CVA Plan: -On empiric ZOsyn #3 -patient is going to hospice, currently he is not septic and no obvious infections process at present. Given hospice and goals of care, recommend discharging him off antibiotics as these will no provide comfort and may produce complications. -f/u cx -Monitor CBC/CMP, temperatures -aspiration precautions -Hospice/comfort care Thank you for this consultation. Will continue to follow along with you. Discussed with RN and Dr Ashley Subjective Allergies: Coded Allergies: No Known Allergies (Unverified , 05/22/18) Subjective afebrile for HD today Bcx NTD Objective Vital Signs Last 24 Hour Vital Signs Date Time Temp Pulse Resp B/P (MAP) Pulse Ox O2 Delivery O2 Flow Rate FiO2 05/25/18 12:00 98.2 78 20 125/69 (87) 99 05/25/18 08:45 Room Air 05/25/18 08:00 97.1 81 20 139/75 (96) 97 05/25/18 04:00 97.4 100 18 129/85 (100) 98 05/25/18 00:00 97.1 57 18 152/78 (102) 97 05/24/18 21:00 Room Air 05/24/18 20:00 99.9 87 18 129/70 (89) 94 Height (Feet): 5 Height (Inches): 6.00 Weight (Pounds): 167 Objective General Appearance: alert, thin, Chronically Ill HEENT: normocephalic, bilateral eye normal inspection, bilateral eye PERRL ENT: moist mucus membranes Neck: supple Respiratory: chest non-tender, lungs clear, normal breath sounds Cardiovascular regular rate, rhythm Gastrointestinal: normal inspection, normal bowel sounds, non tender, no mass, non-distended Genitourinary: no CVA tenderness Musculoskeletal: back normal, normal range of motion Neurologic: alert, oriented x3, sensory intact, motor weakness - Generalized Psychiatric: depressed affect Skin: normal inspection, warm/dry Microbiology Date/Time Source Procedure Growth Status 05/23/18 16:30 Blood Blood Culture - Preliminary NO GROWTH AFTER 24 HOURS Resulted 05/23/18 16:15 Blood Blood Culture - Preliminary NO GROWTH AFTER 24 HOURS Resulted 05/22/18 21:00 Wound Gram Stain - Final Resulted 05/22/18 21:00 Wound Culture - Preliminary Staphylococcus Aureus Gram Positive Cocci Resulted 05/22/18 20:00 Nasal Nares MRSA Culture - Final NO METHICILLIN RESISTANT STAPH AUREUS... Complete 05/22/18 20:00 Rectum VRE Culture - Final Enterococcus Faecium - Vre Complete 05/22/18 20:00 Rectum - Final NO CARBAPENEM-RESISTANT ENTEROBACTERI... Complete Current Medications Medications (Trade) Dose Ordered Sig/Kiera Route PRN Reason Start Time Stop Time Status Last Admin Dose Admin Acetaminophen (Tylenol) 650 mg Q4H PRN ORAL Mild Pain/Temp > 100.5 05/23/18 00:30 06/22/18 00:29 Acetaminophen/ Hydrocodone Bitart ([place] 10/325) 1 tab Q4H PRN ORAL Moderate Pain (Pain Scale 4-6) 05/22/18 22:45 05/29/18 22:44 Acetaminophen/ Hydrocodone Bitart ([place] 5/325) 1 tab Q4H PRN ORAL Mild Pain (Pain Scale 1-3) 05/22/18 22:45 05/29/18 22:44 Bisacodyl (Dulcolax) 10 mg DAILYPRN PRN RECTAL Constipation 05/23/18 00:30 06/22/18 00:29 Calcitriol (Rocatrol) 0.25 mcg DAILY ORAL 05/23/18 09:00 06/22/18 08:59 05/25/18 10:31 Diphenhydramine HCl (Benadryl) 25 mg Q6H PRN IVP Itching 05/22/18 22:45 06/21/18 22:44 Docusate Sodium (Colace) 100 mg TWICE A DAY ORAL 05/23/18 09:00 06/22/18 08:59 05/25/18 10:31 Donepezil HCl (Aricept) 15 mg BEDTIME ORAL 05/23/18 21:00 06/22/18 20:59 05/24/18 20:55 Famotidine (Pepcid) 20 mg BEDTIME ORAL 05/23/18 00:15 06/22/18 00:14 05/24/18 20:54 Finasteride (Proscar) 5 mg BEDTIME ORAL 05/23/18 00:15 06/22/18 00:14 05/24/18 20:54 Gabapentin (Neurontin) 100 mg BEDTIME ORAL 05/23/18 00:15 06/22/18 00:14 05/24/18 20:55 Heparin Sodium (Porcine) (Heparin 5000 units/ml) 5,000 units EVERY 12 HOURS SUBQ 05/23/18 09:00 06/22/18 08:59 05/24/18 20:57 Levetiracetam (Keppra) 500 mg 3XW ORAL 05/24/18 09:00 06/23/18 08:59 05/24/18 08:42 Levetiracetam (Keppra) 750 mg DAILY ORAL 05/23/18 09:00 06/22/18 08:59 05/25/18 10:31 Morphine Sulfate (Morphine Sulfate) 1 mg Q4H PRN IVP For Pain 05/22/18 22:45 05/29/18 22:44 Ondansetron HCl (Zofran) 4 mg Q6H PRN IVP Nausea & Vomiting 05/22/18 22:45 06/21/18 22:44 Oxcarbazepine (Trileptal) 75 mg BEDTIME ORAL 05/23/18 21:00 06/22/18 20:59 05/24/18 20:56 Oxcarbazepine (Trileptal) 150 mg EVERY 12 HOURS ORAL 05/23/18 00:15 06/22/18 00:14 05/25/18 10:30 Piperacillin Sod/ Tazobactam Sod 2.25 gm/Dextrose 55 ml @ 110 mls/hr Q8HR IV 05/23/18 22:00 05/28/18 21:59 05/25/18 13:19 Polyethylene Glycol (Miralax) 17 gm Q8H PRN ORAL Constipation 05/22/18 23:45 06/21/18 23:44 Sevelamer Carbonate (Renvela) 800 mg THREE TIMES A DAY ORAL 05/23/18 09:00 06/22/18 08:59 05/25/18 13:18 Vitamin B Complex (Vitamin B Complex) 1 tab DAILY ORAL 05/23/18 09:00 06/22/18 08:59 05/25/18 10:31 Vitamin B Complex/ Vit C/Folic Acid (Nephrovite) 1 tab BEDTIME ORAL 05/23/18 00:15 06/22/18 00:14 05/24/18 20:54 Kim Wells M.D. May 25, 2018 17:08
[2018-05-25] MEDS ORDERED: Tubing IV Secondary IV ONE (19:29)
[2018-05-25] MEDS ORDERED: NS 275ml ONE (19:29)
--- NOTE | 2018-05-25 21:55 | Discharge Summary ---
Discharge Summary Hospital Course Date of Admission May 22, 2018 at 17:25 Date of Discharge 05/25/18 Admitting Diagnosis ALOC/ESRD Reason for Hospitalization: Sepsis, AMX HPI Lyndon Torres is a 83 year old male who was admitted on May 22, 2018 at 17:25 for Altered Level Of Consciousness/End Stage Renal Consultations Travis Peña MD - RENAL Kim Wells MD - ID Procedures HD 05/25 Hospital Course Patient was admitted to the hospital and started initially on BSABX. After d/w his daughter and outside PMD & image archivist, it was determined that the prior goal was to start hospice and D/C HD. His daughter was ok with one session of HD in the hospital to ensure a smooth transition home. This was done. Patient was hemodynamically stable and given no source of infection and overall goal he was D/C'd to the SNF off Abx. Discharge Medications Continued Medications: Acetaminophen* (Tylenol*) 120 Mg Supp.rect 650 MG ORAL Q4H PRN for Mild Pain/Temp > 100.5, SUPP (This prescription has been renewed) Bisacodyl (Dulcolax) 10 Mg Supp.rect 10 MG RC, SUPP (This prescription has been renewed) Docusate Sodium* (Docusate Sodium*) 100 Mg Capsule 100 MG ORAL TWICE A DAY, CAP (This prescription has been renewed) Donepezil Hcl* (Donepezil Hcl*) 10 Mg Tablet 15 MG ORAL DAILY, TAB (This prescription has been renewed) Famotidine (Famotidine) 20 Mg Tablet 20 MG ORAL BEDTIME, #30 TAB 0 Refills (This prescription has been renewed) Febuxostat (Uloric) 40 Mg Tablet 40 MG ORAL DAILY, #30 TAB 0 Refills (This prescription has been renewed) Finasteride (Finasteride) 5 Mg Tablet 5 MG ORAL BEDTIME, #30 TAB 0 Refills (This prescription has been renewed) Gabapentin* (Gabapentin*) 100 Mg Capsule 100 MG ORAL BEDTIME, CAP (This prescription has been renewed) Levetiracetam (Keppra) 750 Mg Tablet 750 MG ORAL DAILY, TAB (This prescription has been renewed) Levetiracetam (Keppra) 500 Mg Tablet 500 MG ORAL 3XW, #60 TAB 0 Refills (This prescription has been renewed) Melatonin/Pyridoxine HCl (B6) (Melatonin 3 mg Tablet) 1 Each Tablet 1 EACH PO BEDTIME, TAB (This prescription has been renewed) Oxcarbazepine (Trileptal) 150 Mg Tablet 150 MG PO EVERY 12 HOURS, TAB (This prescription has been renewed) Polyethylene Glycol 3350* (Miralax*) 17 Gm Powd.pack 17 GM ORAL EVERY 8 HOURS, PACKET (This prescription has been renewed) Sevelamer Carbonate* (Renvela*) 0.8 Gm Powd.pack 800 MG ORAL THREE TIMES A DAY, PACK (This prescription has been renewed) Vitamin B Cmplx/Vit C/Folic AC (Nephro-Deon Tablet) 0.8 Mg Tablet 1 TAB ORAL BEDTIME, #30 TAB 0 Refills (This prescription has been renewed) Discharge Condition Upon Discharge: unchanged Discharge Disposition Patient was discharged to SNF/Subacute Facility(03) Discharge Diagnoses: (1) Sepsis (2) Elevated troponin (3) Altered level of consciousness (4) Paroxysmal A-fib Trae Ashley MD May 25, 2018 21:55
== END 2018-05-25 19:30 | DRG 871 ==
LOC: EDBD 14:01 → EMR 15:00 → 4E 17:25 → EDBEDREQ 17:42 → 4E 23:10
PROC: 5A1D70Z Performance of Urinary Filtration, Intermittent, Less than 6 Hours Per Day (ICD-10-PCS; principal; 2018-05-25)
DX: A41.9 Sepsis, unspecified organism (principal); N18.6 End stage renal disease; I12.0 Hypertensive chronic kidney disease with stage 5 chronic kidney disease or end stage renal disease; Z99.2 Dependence on renal dialysis; I48.0 Paroxysmal atrial fibrillation; E78.5 Hyperlipidemia, unspecified; Z85.528 Personal history of other malignant neoplasm of kidney; G40.909 Epilepsy, unspecified, not intractable, without status epilepticus; M10.9 Gout, unspecified; F01.50 Vascular dementia, unspecified severity, without behavioral disturbance, psychotic disturbance, mood disturbance, and anxiety; M48.00 Spinal stenosis, site unspecified; L89.152 Pressure ulcer of sacral region, stage 2; Z66 Do not resuscitate
CPT/HCPCS: 36415; 71045; 80053; 80061; 80299; 82140; 82550; 82607; 82728; 82746; 83540; 83550; 83605; 83735; 83880; 84100; 84443; 84484; 84550; 85007; 85025; 85610; 85730; 86140; 87040; 87070; 87081; 87181; 87205; 93005; 96365; 99285